=== PATIENT | male | born 1950 | race Caucasian/White ===

== ENCOUNTER → 2023-08-06 | Outpatient (CLI) | payer MEDICARE, OTHER ==
[2023-08-09 07:10] LABS: HSV 1 SUBTYPE BY PCR Not Detected; HSV 2 SUBTYPE BY PCR Not Detected; HSV SUBTYPE SOURCE penis
[2023-08-09 09:53] LABS: VARICELLA-ZOSTER VIRUS BY PCR Not Detected; VARICELLA-ZOSTER VIRUS SOURCE penis
== END ==
LOC: LAB SHORT 10:23 → LAB 10:23
PROVIDERS: General Practice
DX: L08.0 Pyoderma (principal)
CPT/HCPCS: 87070; 87205; 87529; 87798

== ENCOUNTER 2024-08-03 07:29 | Day surgery (SDC) | payer MEDICARE, OTHER ==
[~2024-08-03] VITALS: Ht 170.2 cm; Wt 79.4 kg
[2024-08-03] MEDS ORDERED: MAGCHL64ER (07:42)
[2024-08-03] MEDS ORDERED: MONT10T (07:42)
[2024-08-03] MEDS ORDERED: FLUTICASONE-SA1 EAC1 (07:42)
[2024-08-03] MEDS ORDERED: VITAMIN B-1250 MCG (07:43)
[2024-08-03] MEDS ORDERED: ERGO400 (07:43)
[2024-08-03] MEDS ORDERED: VITAMIN B150 MG (07:43)
[2024-08-03] MEDS ORDERED: Lactated Ringer's 1,000 ML IV ONE ×2 (08:12→08:34)
[2024-08-03] MEDS ORDERED: propofoL 50 ML IV ONE (08:34)
--- NOTE | 2024-08-03 09:05 | NUR ---
08/03/24 0904 JORGITO LUBIN COLONOSCOPY INCOMPLETE D/T POORPREP. END NOTE
[2024-08-03 09:35] VITALS: BP 159/89
== END 2024-08-03 09:42 | disposition home or self-care (01) ==
LOC: ORSCSDS 07:29
PROVIDERS: Internal Medicine Gastroenterology
PROC: 0DJD8ZZ Inspection of Lower Intestinal Tract, Via Natural or Artificial Opening Endoscopic (ICD-10-PCS; principal; 2024-08-03 08:45)
DX: Z12.11 Encounter for screening for malignant neoplasm of colon (principal); K21.9 Gastro-esophageal reflux disease without esophagitis; E78.5 Hyperlipidemia, unspecified; G47.33 Obstructive sleep apnea (adult) (pediatric)
CPT/HCPCS: J2704; J7120

== ENCOUNTER 2025-02-02 11:32 | Day surgery (SDC) | payer MEDICARE, OTHER ==
[~2025-02-02] VITALS: Ht 170.2 cm; Wt 75.2 kg
[~2025-02-02 11:32] MED LIST: ERGO400; FLUTICASONE-SA1 EAC1; MAGCHL64ER; MONT10T; VITAMIN B-1250 MCG; VITAMIN B150 MG
[2025-02-02 13:44] VITALS: BP 135/75
== END 2025-02-02 13:50 | disposition home or self-care (01) ==
LOC: ORSCSDS 11:32
PROVIDERS: Internal Medicine Gastroenterology
PROC: 0DBP8ZX Excision of Rectum, Via Natural or Artificial Opening Endoscopic, Diagnostic (ICD-10-PCS; principal; 2025-02-02 13:00)
DX: Z12.11 Encounter for screening for malignant neoplasm of colon (principal); J45.909 Unspecified asthma, uncomplicated; K62.1 Rectal polyp; K63.89 Other specified diseases of intestine; K57.30 Diverticulosis of large intestine without perforation or abscess without bleeding
CPT/HCPCS: 88305; J2704